=== PATIENT | female | born 1995 | race Two or more races ===

== ENCOUNTER 2019-08-18 16:49 | Emergency (ER) | payer OTHER, SELFPAY ==
--- NOTE | ~2019-08-18 | XR_ITS ---
EXAMINATION: XR chest 2V DATE: 08/18/2019 17:20 INDICATION: Cough TECHNIQUE: PA and lateral views of the chest are obtained. COMPARISON: None available FINDINGS: The lungs are free of acute opacities. There is no pleural effusion or pneumothorax. The ca rdiomediastinal silhouette is normal. The visualized bones and soft tissues are unremarkable. IMPRESSION: 1. No acute cardiopulmonary abnormality. Reviewed, dictated and finalized at location A. [facility]
[2019-08-18 16:51] VITALS: BP 117/79; PULSE 121; RESP 16; TEMP 36.6; O2SAT 100
--- NOTE | 2019-08-18 17:10 | ED.GENADULT ---
HPI - General Adult General Chief complaint: Upper Respiratory Infection Stated complaint: COUGH Time Seen by Provider: 08/18/19 17:03 Source: patient Mode of arrival: ambulatory Limitations: no limitations History of Present Illness HPI narrative: 23-year-old female presents for evaluation of symptoms that been present for 6 days. She reports initially started with a sore throat, sinus drainage, rhinorrhea, congestion. It has progressed and she now has a cough that is productive, left ear pain, sore throat, headache, loss of voice. She reported some chest discomfort for the first few days of symptoms but that has since resolved. She has used an [id number] cough and cold medication daily with no improvement. She denies any sick contacts. She did not get a flu shot this season. She smokes hookah daily. She reports history of sickle cell anemia. She does not take any medications for this. She denies any fever, current chest pain, wheezing, shortness of breath, rash, pain to extremities, abdominal pain, distention, weakness, confusion. Related Data Allergies Allergy/AdvReac Type Severity Reaction Status Date / Time No Known Allergies Allergy Verified 08/18/19 16:56 Review of Systems Review of Systems: Narrative: CONSTITUTIONAL: Denies fever, chills, weight loss, or sweats. EYES: Denies visual changes, redness, or discharge. ENT: Reports rhinorrhea, congestion, sore throat, left otalgia. CARDIOVASCULAR: Reports chest pain that has resolved. Denies palpitations, edema. RESPIRATORY: Denies dyspnea. Reports productive cough GASTROINTESTINAL: Denies abdominal pain, nausea, vomiting, or diarrhea. GENITOURINARY: Denies dysuria, hematuria, urinary frequency, malordous urine SKIN: Denies rash or itching. MUSCULOSKELETAL: Denies back pain, joint pain, myalgia, swelling NEUROLOGIC: Denies numbness, weakness. Reports headache PMFSH Comments Reviewed Exam Narrative: Exam Narrative: GENERAL: No distress, well appearing, well nourished, alert and calm HEAD: Normocephalic, atraumatic. No sinus tenderness noted EYES: Pupils equal, round. Extraocular movements intact. Conjunctivae without redness or drainage. EARS: Tympanic membranes without erythema. TM landmarks intact with good light reflex. Ear canals without discharge. NOSE: Nares patent. Nasal turbinates inflamed. No nasal discharge MOUTH: Mucous membranes moist. No lesions. No cyanosis. Dentition grossly normal. THROAT: Oropharynx with mild erythema. no exudates or lesions. Tonsils not enlarged. NECK: Supple. No lymphadenopathy. RESPIRATORY: Airway patent. Chest clear to auscultation bilaterally. Breath sounds equal bilaterally. No retractions. CARDIOVASCULAR: Regular rate and rhythm. No murmurs, rubs, gallops, or clicks. Capillary refill <2 seconds. MUSCULOSKELETAL: Range of motion grossly normal in all four extremities. Strength grossly normal in all four extremities. No edema. No swelling SKIN: Color normal. Warm and dry. No rashes. NEURO: Alert. Motor intact in all extremities. Muscle tone normal. Cranial nerves II through XII grossly intact Course Course Emergency Course: Obtained influenza and strep swab Will obtain chest x-ray to rule out acute chest, pneumonia Vital Signs Vital signs: Vital Signs Temperature 97.9 F 08/18/19 16:51 Pulse Rate 121 H 08/18/19 16:51 Respiratory Rate 16 08/18/19 16:51 Blood Pressure 117/79 08/18/19 16:51 Pulse Oximetry 100 08/18/19 16:51 Temperature 97.9 F 08/18/19 16:51 Pulse Rate 121 H 08/18/19 16:51 Respiratory Rate 16 08/18/19 16:51 Blood Pressure 117/79 08/18/19 16:51 Pulse Oximetry 100 08/18/19 16:51 Reviewed Auscultated heart rate at 100 bpm Medical Decision Making MDM Narrative Medical decision making narrative: Patient is in no acute distress and is non toxic appearing, vitals stable, sats 100% room air. Due to symptoms along with history of sickle ce
== END 2019-08-18 17:54 | disposition home or self-care (01) ==
PROVIDERS: Emergency Provider Nurse Practitioner
DX: J32.9 Chronic sinusitis, unspecified (principal); D57.1 Sickle-cell disease without crisis
CPT/HCPCS: 71046; 87081; 87804; 87880; 99203; G0463